=== PATIENT | female | born 1970 | race Caucasian/White ===

== ENCOUNTER 2017-02-08 00:21 | Emergency (ER) | payer OTHER ==
[2017-02-08 00:33] VITALS: BP 134/96; PULSE 106; TEMP 98.7; BMI 37.8
[2017-02-08] MEDS ORDERED: predniSONE 20 MG TABLET (UD) PO ONE (00:35)
--- NOTE | 2017-02-08 00:37 | PDOC ---
History of Present Illness - General Chief Complaint: Respiratory Stated Complaint: COUGH Time Seen by Provider: 02/08/17 00:23 History Source: Patient Exam Limitations: No Limitations - History of Present Illness Initial Comments: 02/08/17 00:35 This is a 46-year-old female who comes in complaining of coughing and respiratory difficulty. Patient has an inhaler at home that she has been using but said it hasn't been helping. Patient otherwise had a recent upper respiratory tract infection and now has residual cough. Patient denies any fevers or chills. Patient denies any phlegm. Patient is morbidly obese but otherwise healthy. PAST MEDICAL HISTORY: no significant history PAST SURGICAL HISTORY: no significant history FAMILY HISTORY: no pertinant history SOCIAL HISTORY: Pt lives with family and is employed. MEDICATIONS: reviewed ALLERGIES: As per nursing notes Review of Systems General: No fevers or chills, no weakness, no weight loss HEENT: No change in vision. No sore throat,. No ear pain CardioVascular: No chest pain or shortness of breath Respiratory: + cough, + wheezing. Gastrointestinal: no nausea, vomitting, diarrhea or constipation, No rectal bleeding Genitourinary: No dysuria, hematuria, or frequency Musculoskeletal: No joint or muscle pain or swelling Neurologic: No headache, vertigo, dizziness or loss of consciousness Psychiatric: nor depression Skin: No rashes or easy bruising Endocrine: no increased thirst or abnormal weight change Allergic: no skin or latex allergy All other systems reviewed and normal Exam: General: Well-nourished well-developed individual, no acute distressy Eyes::Pupils equal reactive and round, extraocular motion intact Chest: Nontender to palpation Cardiac: S1-S2 normal, regular rate and rhythm, no murmurs rubs or gallops Respiratory: There is some mild decreased air entry bilateral with bilateral wheezing in all [place]. Extremities: Warm, dry, no cyanosis, clubbing, or edema Skin: No rashes Neuro: Alert and oriented x3, nonfocal exam, grossly intact, normal gait Psych: Normal mood and affect Past History - Past Medical History Allergies/Adverse Reactions: Allergies Allergy/AdvReac Type Severity Reaction Status Date / Time No Known Allergies Allergy Unverified 02/16/12 18:29 Home Medications: Ambulatory Orders Albuterol Sulfate Inhaler - [Ventolin Hfa Inhaler -] 1 - 2 inh PO Q4H #1 inhaler 04/22/17 Ativan PRN 02/08/17 Benzonatate [Tessalon Pearls -] 200 mg PO TID #30 cap 02/08/17 Bupropion HCl [Wellbutrin Xl -] 300 mg PO DAILY 02/08/17 Guaifenesin/Codeine Phosphate [Codeine-Guaifen 10-100 mg/5 ml] 5 ml PO TID PRN # 100 ml MDD 25 02/08/17 Modafinil [Provigil (Nf)] 200 mg PO DAILY 02/08/17 Prednisone [Deltasone -] 60 mg PO DAILY #12 tablet 02/08/17 - Psycho/Social/Smoking Cessation Hx Anxiety: Yes Suicidal Ideation: No Smoking Status: No Smoking History: Former smoker Have you smoked in the past 12 months: No Number of Cigarettes Smoked Daily: 0 Information on smoking cessation initiated: No Hx Alcohol Use: Yes (wine) Drug/Substance Use Hx: No Hx Substance Use Treatment: No *Physical Exam - Vital Signs Last Vital Signs Temp Pulse Resp BP Pulse Ox 98.7 F 106 H 20 134/96 99 02/08/17 00:31 02/08/17 00:31 02/08/17 00:31 02/08/17 00:31 02/08/17 00:31 *DC/Admit/Observation/Transfer Diagnosis at time of Disposition: Evidence of airways hyperreactivity without diagnosis of asthma, Cough - Discharge Dispostion Disposition: HOME Condition at time of disposition: Stable Admit: No - Prescriptions Prescriptions: Guaifenesin/Codeine Phosphate [Codeine-Guaifen 10-100 mg/5 ml] 5 ml PO TID PRN # 100 ml MDD 25 PRN Reason: Cough Prednisone [Deltasone -] 60 mg PO DAILY #12 tablet Benzonatate [Tessalon Pearls -] 200 mg PO TID #30 cap Albuterol Sulfate Inhaler - [Ventolin Hfa Inhaler -] 1 - 2 inh PO Q4H #1 inhaler - Patient Instructions Additional Instructions: For the cough take cough medicine 5 mL every 6 - 8 hours as needed. In addition to a concert take the prednisone 3 tablets once a day for the next 4 days. Use your inhaler 2 puffs as often as every 4-6 hours as needed. Return to the emergency department immediately with ANY new, persistent or worsening symptoms. Continue any medications as previously prescribed by your physician. You should follow up with your primary doctor as soon as possible regarding today's emergency department visit. . Please make sure your doctor reviews the results of your emergency evaluation. Thank you for coming to the Emergency Department today for your care. It was a pleasure to see you today. Please note that your evaluation is INCOMPLETE until you follow-up with your doctor.
[2017-02-08] MEDS: ALBUTEROL SO4 2.5/IPRATROPIUM 0.5 INH SOL 3 ML VIAL.NEB. NEB SCH ×2 (00:39→01:00)
[2017-02-08] MEDS ORDERED: ALBUTEROL SO4 2.5/IPRATROPIUM 0.5 INH SOL 3 ML VIAL.NEB. NEB ONE (01:07)
[2017-02-08] MEDS ORDERED: guaiFENesin/CODEINE 10 ML UNIT-DOSE CUPS PO ONE (01:22)
[2017-02-08] MEDS ORDERED: guaiFENesin/CODEINE 10 ML UNIT-DOSE CUPS ONE (01:24)
== END 2017-02-08 01:29 | disposition home or self-care (01) ==
LOC: FER 00:21
PROC: 3E0F7GC Introduction of Other Therapeutic Substance into Respiratory Tract, Via Natural or Artificial Opening (ICD-10-PCS; principal; 2017-02-08)
DX: J98.8 Other specified respiratory disorders (principal); Z87.891 Personal history of nicotine dependence; E66.01 Morbid (severe) obesity due to excess calories; Z68.37 Body mass index [BMI] 37.0-37.9, adult
CPT/HCPCS: 99281-25

== ENCOUNTER 2017-03-15 23:02 | Emergency (ER) | payer OTHER ==
--- NOTE | 2017-03-15 23:06 | PDOC ---
History of Present Illness - General Chief Complaint: Asthma Stated Complaint: COUGH, WHEEZING Time Seen by Provider: 03/15/17 23:06 History Source: Patient Exam Limitations: No Limitations - History of Present Illness Initial Comments: 03/16/17 00:29 This is a 46-year-old female who comes in complaining of cough and shortness of breath. Patient said that she has had intermittent cough 1 month. Patient has been to the ER , an urgent care center and now back to the ER for these symptoms. Patient was started on antibiotics recently from the urgent care center and is currently on antibiotics. Patient also has a inhaler that she has been using without relief. Patient does not have a primary care doctor and has not followed up with the pulmonary doctor. PAST MEDICAL HISTORY: no significant history PAST SURGICAL HISTORY: no significant history FAMILY HISTORY: no pertinant history SOCIAL HISTORY: Pt lives with family and is employed. MEDICATIONS: reviewed ALLERGIES: As per nursing notes Review of Systems General: No fevers or chills, no weakness, no weight loss HEENT: No change in vision. No sore throat,. No ear pain CardioVascular: No chest pain or shortness of breath Respiratory:No cough, or wheezing. Gastrointestinal: no nausea, vomitting, diarrhea or constipation, No rectal bleeding Genitourinary: No dysuria, hematuria, or frequency Musculoskeletal: No joint or muscle pain or swelling Neurologic: No headache, vertigo, dizziness or loss of consciousness Psychiatric: nor depression Skin: No rashes or easy bruising Endocrine: no increased thirst or abnormal weight change Allergic: no skin or latex allergy All other systems reviewed and normal Exam: General: Well-nourished well-developed individual, no acute distress HEENT: Throat: Normal, tonsils normal, no erythema or exudate Neck: Supple, no meningeal signs, no lymphadenopathy Eyes::Pupils equal reactive and round, extraocular motion intact Chest: Nontender to palpation Cardiac: S1-S2 normal, regular rate and rhythm, no murmurs rubs or gallops Respiratory: There is extra wheezing bilateral, Abdomen: Soft, nondistended, normal bowel sounds, nontender to palpation diffusely Extremities: Warm, dry, no cyanosis, clubbing, or edema Skin: No rashes Neuro: Alert and oriented x3, nonfocal exam, grossly intact, normal gait Psych: Normal mood and affect Past History - Past Medical History Allergies/Adverse Reactions: Allergies Allergy/AdvReac Type Severity Reaction Status Date / Time No Known Allergies Allergy Unverified 02/16/12 18:29 Home Medications: Ambulatory Orders Albuterol Sulfate Inhaler - [Ventolin Hfa Inhaler -] 1 - 2 inh PO Q4H #1 inhaler 02/08/17 Ativan PRN 02/08/17 Bupropion HCl [Wellbutrin Xl -] 300 mg PO DAILY 02/08/17 Modafinil [Provigil (Nf)] 200 mg PO DAILY 02/08/17 Guaifenesin/Codeine Phosphate [Codeine-Guaifen 10-100 mg/5 ml] 5 ml PO QID PRN # 120 ml MDD 20 ml 03/16/17 Prednisone [Deltasone -] 60 mg PO DAILY #12 tablet 03/16/17 Psychiatric Problems: Yes (ANXIETY, DEPRESSION, LACK OF ENERGY) - Psycho/Social/Smoking Cessation Hx Anxiety: Yes Suicidal Ideation: No Smoking Status: No Smoking History: Former smoker Have you smoked in the past 12 months: No Number of Cigarettes Smoked Daily: 0 Hx Alcohol Use: Yes (wine) Drug/Substance Use Hx: No Hx Substance Use Treatment: No *DC/Admit/Observation/Transfer Diagnosis at time of Disposition: Acute exacerbation of asthma with allergic rhinitis - Discharge Dispostion Disposition: HOME Condition at time of disposition: Stable Admit: No - Prescriptions Prescriptions: Guaifenesin/Codeine Phosphate [Codeine-Guaifen 10-100 mg/5 ml] 5 ml PO QID PRN # 120 ml MDD 20 ml PRN Reason: Cough Prednisone [Deltasone -] 60 mg PO DAILY #12 tablet - Referrals Referrals: Louie Torres MD [Staff Physician] - - Patient Instructions Printed Discharge Instructions: Asthma -- Adult Additional Instructions: Continue to take antibiotics as prescribed Continue to use your inhaler as prescribed Take prednisone 60 mg a day for [address] Torres's office Friday and get an appointment for Chaidez you can. Get the prescription filled for the codeine cough medicine and take 5 mils as often as 4 times a day note the codeine way make you drowsy, may make you nauseous so try to limit it to than nighttime hours if possible Return to the emergency department immediately with ANY new, persistent or worsening symptoms. Continue any medications as previously prescribed by your physician. You should follow up with your primary doctor as soon as possible regarding today's emergency department visit. . Please make sure your doctor reviews the results of your emergency evaluation. Thank you for coming to the Emergency Department today for your care. It was a pleasure to see you today. Please note that your evaluation is INCOMPLETE until you follow-up with your doctor.
[2017-03-15] MEDS ORDERED: predniSONE 20 MG TABLET (UD) PO ONE (23:07)
[2017-03-15 23:11] VITALS: BP 159/103; PULSE 110; TEMP 99.3; BMI 32.5
[2017-03-15] MEDS: ALBUTEROL SO4 2.5/IPRATROPIUM 0.5 INH SOL 3 ML VIAL.NEB. NEB SCH ×3 (23:16→23:47)
[2017-03-16] MEDS: ALBUTEROL SO4 2.5/IPRATROPIUM 0.5 INH SOL 3 ML VIAL.NEB. NEB SCH (00:07)
[2017-03-16] MEDS ORDERED: guaiFENesin/CODEINE 10 ML UNIT-DOSE CUPS ONE (00:41)
[2017-03-16] MEDS ORDERED: guaiFENesin/CODEINE 10 ML UNIT-DOSE CUPS PO SCH (22:00)
== END 2017-03-16 00:55 | disposition home or self-care (01) ==
LOC: FER 23:02
PROC: 3E0F7GC Introduction of Other Therapeutic Substance into Respiratory Tract, Via Natural or Artificial Opening (ICD-10-PCS; principal; 2017-03-15)
DX: J45.901 Unspecified asthma with (acute) exacerbation (principal); J30.9 Allergic rhinitis, unspecified; Z87.891 Personal history of nicotine dependence; F41.8 Other specified anxiety disorders
CPT/HCPCS: 99281-25

== ENCOUNTER 2017-03-28 20:09 | Emergency (ER) | payer OTHER ==
--- NOTE | 2017-03-28 20:16 | PDOC ---
History of Present Illness - History of Present Illness Initial Comments: 03/28/17 21:04 The patient is a 46-year-old female, with no significant past medical history, who presents to the emergency department complaining of persistent cough, shortness of breath, and wheezing since completing a 4-day course of prednisone prescribed to her during her recent ED visit for similar complaints on 03/15/17. The patient reports she has an appointment with manager route, Dr. Gunter for 04/17/17, but could not get an appointment sooner. She reports her symptoms have been persistent and presents for reevaluation. PAST MEDICAL HISTORY: no significant history PAST SURGICAL HISTORY: no significant history FAMILY HISTORY: no pertinent history SOCIAL HISTORY: Pt lives with family and is employed. MEDICATIONS: reviewed ALLERGIES: As per nursing notes ADULT ROS General: No fevers or chills, no weakness, no weight loss HEENT: No change in vision. No sore throat,. No ear pain CardioVascular: No chest pain or shortness of breath Respiratory: (+) SOB, cough, and wheezing. Gastrointestinal: no nausea, vomiting, diarrhea or constipation, No rectal bleeding Genitourinary: No dysuria, hematuria, or frequency Musculoskeletal: No joint or muscle pain or swelling Neurologic: No headache, vertigo, dizziness or loss of consciousness Psychiatric: nor depression Skin: No rashes or easy bruising Endocrine: no increased thirst or abnormal weight change Allergic: no skin or latex allergy All other systems reviewed and normal Physical Exam not performed prior to patient eloping. <Aleida Gonzales - Last Filed: 03/28/17 21:15> - General History Source: Patient Exam Limitations: No Limitations - History of Present Illness Initial Comments: 03/28/17 21:38 Patient was seen initially by the medical student and eloped prior to my exam and completion of her evaluation. <Mikki Ibarra I - Last Filed: 03/28/17 21:39> - General Chief Complaint: Respiratory Stated Complaint: COUGH Time Seen by Provider: 03/28/17 20:15 Past History <Aleida Gonzales - Last Filed: 03/28/17 21:15> - Past Medical History Psychiatric Problems: Yes (ANXIETY, DEPRESSION, LACK OF ENERGY) - Psycho/Social/Smoking Cessation Hx Anxiety: Yes Suicidal Ideation: No Smoking Status: No Smoking History: Former smoker Have you smoked in the past 12 months: No Number of Cigarettes Smoked Daily: 0 Hx Alcohol Use: Yes (wine) Drug/Substance Use Hx: No Hx Substance Use Treatment: No <Mikki Ibarra I - Last Filed: 03/28/17 21:39> - Past Medical History Allergies/Adverse Reactions: Allergies Allergy/AdvReac Type Severity Reaction Status Date / Time No Known Allergies Allergy Verified 03/28/17 20:15 Home Medications: Ambulatory Orders Albuterol Sulfate Inhaler - [Ventolin Hfa Inhaler -] 1 - 2 inh PO Q4H #1 inhaler 02/08/17 Ativan PRN 02/08/17 Bupropion HCl [Wellbutrin Xl -] 300 mg PO DAILY 02/08/17 Modafinil [Provigil (Nf)] 200 mg PO DAILY 02/08/17 Guaifenesin/Codeine Phosphate [Codeine-Guaifen 10-100 mg/5 ml] 5 ml PO QID PRN # 120 ml MDD 20 ml 03/16/17 Prednisone [Deltasone -] 60 mg PO DAILY #12 tablet 03/16/17 Bupropion HCl [Wellbutrin -] 300 mg PO DAILY 03/28/17 Methylphenidate HCl [Ritalin] mg PO DAILY 03/28/17 *Physical Exam - Vital Signs Last Vital Signs Temp Pulse Resp BP Pulse Ox 99.8 F H 92 H 24 118/98 99 03/28/17 20:10 03/28/17 20:10 03/28/17 20:10 03/28/17 20:10 03/28/17 20:10 <Aleida Gonzales - Last Filed: 03/28/17 21:15> *DC/Admit/Observation/Transfer - Attestations Scribe Attestion: 03/28/17 21:05 Documentation prepared by Aleida Gonzales, acting as medical record administrator for Mikki Ibarra MD <Aleida Gonzales - Last Filed: 03/28/17 21:15> <Mikki Ibarra I - Last Filed: 03/28/17 21:39> Diagnosis at time of Disposition: Eloped - Discharge Dispostion Disposition: ELOPED Condition at time of disposition: Stable
[2017-03-28 20:31] VITALS: BP 118/98; PULSE 92; TEMP 99.8; BMI 36.8
[2017-03-28] MEDS ORDERED: predniSONE 20 MG TABLET (UD) PO ONE (21:03)
[2017-03-28] MEDS ORDERED: ALBUTEROL SO4 2.5/IPRATROPIUM 0.5 INH SOL 3 ML VIAL.NEB. NEB SCH (21:15)
== END 2017-03-28 21:22 | disposition left against medical advice (07) ==
LOC: FER 20:09
DX: Z53.21 Procedure and treatment not carried out due to patient leaving prior to being seen by health care provider (principal); Z87.891 Personal history of nicotine dependence; F41.8 Other specified anxiety disorders; R53.83 Other fatigue
CPT/HCPCS: 99282-25